=== PATIENT | male | born 1980 | race Caucasian/White ===

== ENCOUNTER 2017-11-15 02:56 | Emergency (ER) | payer MEDICARE ==
[~2017-11-15] VITALS: Ht 195.6 cm; Wt 122.0 kg
[2017-11-15] MEDS ORDERED: ACETAMINOPHEN 500MG TABLET PO ONE (05:15)
[2017-11-15 06:44] VITALS: BP 133/80
== END 2017-11-15 06:45 | disposition home or self-care (01) ==
LOC: ER 03:51
DX: H60.91 Unspecified otitis externa, right ear (principal); F17.210 Nicotine dependence, cigarettes, uncomplicated; F12.90 Cannabis use, unspecified, uncomplicated; Z88.8 Allergy status to other drugs, medicaments and biological substances; Z88.1 Allergy status to other antibiotic agents
CPT/HCPCS: 99283